=== PATIENT | female | born 1950 | race African-American/Black ===

== ENCOUNTER 2018-02-26 19:18 | Emergency (ER) | payer MEDICARE, MEDICAID ==
[~2018-02-26] VITALS: Ht 180.3 cm; Wt 93.0 kg
[2018-02-26 19:27] VITALS: BP 170/79
== END 2018-02-27 02:58 | disposition left against medical advice (07) ==
LOC: ER 19:18
DX: F41.9 Anxiety disorder, unspecified (principal); R51 Headache; E11.9 Type 2 diabetes mellitus without complications; I10 Essential (primary) hypertension; Z53.21 Procedure and treatment not carried out due to patient leaving prior to being seen by health care provider

== ENCOUNTER 2019-07-06 16:51 | Inpatient (IN) | payer MEDICAID, MEDICARE ==
[~2019-07-06] VITALS: Ht 165.1 cm; Wt 79.8 kg
[2019-07-06 12:05] VITALS: BP 118/58
[2019-07-06] MEDS ORDERED: NALOXONE HCL 0.4 MG/ML 1ML VIAL IV ONE (17:45)
[2019-07-06] MEDS ORDERED: SODIUM CHLORIDE 0.9% 1,000 ML IV ONE (17:45)
[2019-07-06] MEDS ORDERED: NALOXONE HCL 0.4 MG/ML 1ML VIAL ONE (17:51)
[2019-07-06] MEDS ORDERED: NALOXONE HCL 1 MG/ML 2ML VIAL IV ONE ×2 (18:00)
[2019-07-06 18:05] LABS: EOSINOPHILS % 2.6 % (0.0-5.0); HEMATOCRIT. 36.7 % (36.0-48.0); HEMOGLOBIN. 12.4 g/dL (12.0-16.0); LYMPHOCYTES % 34.6 % (20.0-50.0); MEAN CORPUSCULAR HEMOGLOBIN 32.5 pg (28.0-32.0); MEAN CORPUSCULAR VOLUME 95.7 fL (81.0-99.0); MEAN PLATELET VOLUME 7.6 fl (7.4-10.4); MONOCYTES % 6.7 % (2.0-8.0); NEUTROPHILS % 55.1 % (40.0-76.0); PLATELET 290 x1000/uL (130-400); RED BLOOD CELL COUNT 3.83 mill/uL (4.2-5.4); RED CELL DISTRIBUTION WIDTH 14.7 % (11.6-14.6)
[2019-07-06 18:11] LABS: CHLORIDE 110 mEq/L (98-107)
[2019-07-06 18:15] LABS: ETHANOL BLOOD < 10 mg/dL
[2019-07-06] MEDS ORDERED: PIPERACILLIN/TAZ 3.375G PREMIX 50 ML IV ONE (18:45)
[2019-07-06] MEDS ORDERED: LEVETIRACETAM 2,000 MG in SODIUM CHLORIDE 0.9% 250 ML IV SCH (18:45)
[2019-07-06] MEDS ORDERED: VANCOMYCIN 1 G PREMIX 200 ML IV ONE (18:45)
[2019-07-06 19:40] LABS: CLARITY URINE CLEAR (CLEAR); COLOR URINE YELLOW (YELLOW); KETONES URINE NEGATIVE (NEGATIVE); LEUKOCYTE ESTERASE URINE NEGATIVE (NEGATIVE); NITRITE URINE NEGATIVE (NEGATIVE); OCCULT BLOOD URINE NEGATIVE (NEGATIVE); PH URINE 6.5 (4.5-8.0); PROTEIN URINE NEGATIVE (NEGATIVE); SPECIFIC GRAVITY URINE 1.007 (1.005-1.030); UROBILINOGEN URINE 0.2 E.U./dL (0.2-1.0)
[2019-07-06 19:55] LABS: *AMPHETAMINES SCREEN URINE NEGATIVE (NEGATIVE); *BARBITURATES SCREEN URINE NEGATIVE (NEGATIVE); *BENZODIAZEPINES SCREEN URINE NEGATIVE (NEGATIVE); *COCAINE SCREEN URINE NEGATIVE (NEGATIVE)
[2019-07-06 19:56] LABS: CANNABINOID URINE SCREEN PRESUMTIVE POSITIVE (NEGATIVE); METHADONE URINE SCREEN NEGATIVE (NEGATIVE); OPIATES URINE SCREEN NEGATIVE (NEGATIVE); PHENCYCLIDINE URINE SCREEN NEGATIVE (NEGATIVE)
[2019-07-06 22:32] VITALS: BP 157/84
[2019-07-06] MEDS: LORAZEPAM 2MG/ML CPJ IV PRN (23:17)
[2019-07-06 23:30] VITALS: BP 157/84
[2019-07-07] VITALS (12 sets, daily range): BP systolic 109–163; BP diastolic 53–87
[2019-07-07] MEDS ORDERED: POTASSIUM CHLORIDE INJ 40 MEQ in DEXT 5% WATER 250 ML IV NR (01:00)
[2019-07-07] MEDS: LORAZEPAM 2MG/ML CPJ IV PRN ×2 (07:07→13:35)
[2019-07-07] MEDS: LEVETIRACETAM 500MG/5ML CUP PO SCH ×2 (09:08→20:57)
[2019-07-07] MEDS: HYDROCODONE/ACETAMINOPHEN 5/325MG TABLET PO PRN ×2 (10:49→16:20)
[2019-07-07] MEDS ORDERED: OXYCODONE HCL/ACETAMINOPHEN 5/325MG TABLET PO PRN (18:30)
[2019-07-07] MEDS: OXYCODONE HCL/ACETAMINOPHEN 5/325MG TABLET PO PRN (22:28)
[2019-07-08] VITALS (12 sets, daily range): BP systolic 126–157; BP diastolic 57–98
[2019-07-08] MEDS ORDERED: OXYCODONE HCL/ACETAMINOPHEN 5/325MG TABLET PO NR (01:00)
[2019-07-08] MEDS: LORAZEPAM 2MG/ML CPJ IV PRN (08:26)
[2019-07-08] MEDS: LEVETIRACETAM 500MG/5ML CUP PO SCH ×2 (10:06→21:15)
[2019-07-08] MEDS: LORAZEPAM 1MG TABLET PO PRN ×2 (16:41→23:15)
[2019-07-08 18:49] LABS: CHLORIDE 108 mEq/L (98-107)
[2019-07-09] VITALS (8 sets, daily range): BP systolic 122–148; BP diastolic 59–102
[2019-07-09] MEDS: LORAZEPAM 1MG TABLET PO PRN (07:53)
[2019-07-09] MEDS: LEVETIRACETAM 500MG/5ML CUP PO SCH (08:25)
[2019-07-09] MEDS: OXYCODONE HCL/ACETAMINOPHEN 5/325MG TABLET PO PRN (12:13)
[2019-07-09] MEDS ORDERED: KEPPSOL PO (12:49)
[2019-07-09] MEDS ORDERED: LEVE1000 MT (12:49)
== END 2019-07-09 15:25 | disposition home health service (06) | DRG 101 ==
LOC: ER 16:51 → EDBEDREQ 19:33 → EDBEDREQSVC 19:34 → CANRESERV 20:59 → ENRESERV 20:59 → EDBEDREQSVC 21:27 → ENRESERV 21:43 → 3WST 22:18
PROVIDERS: ADMIT Internal Medicine; ATTEND Internal Medicine
DX: G40.901 Epilepsy, unspecified, not intractable, with status epilepticus (principal); E87.1 Hypo-osmolality and hyponatremia; E87.8 Other disorders of electrolyte and fluid balance, not elsewhere classified; E87.6 Hypokalemia; E11.9 Type 2 diabetes mellitus without complications; F12.90 Cannabis use, unspecified, uncomplicated; F41.9 Anxiety disorder, unspecified; G89.29 Other chronic pain; I10 Essential (primary) hypertension
CPT/HCPCS: 36415; 70551; 71045; 80048; 80053; 80305; 80320; 81003; 83605; 83880; 84484; 85025; 87186; 93005; 97112; 97116; 97162; 99285; J1953; J2060; J2310; J2543; J3370; J3480; J7030; J7050; J7060; G0480

== ENCOUNTER 2021-02-14 17:18 | Emergency (ER) | payer MEDICARE ==
[~2021-02-14] VITALS: Ht 167.6 cm; Wt 82.0 kg
[~2021-02-14 17:18] MED LIST: KEPPSOL PO; LEVE1000 MT
[2021-02-14] MEDS ORDERED: ACETAMINOPHEN 325MG TABLET PO ONE (19:00)
[2021-02-14 20:47] VITALS: BP 130/86
== END 2021-02-14 20:52 | disposition home or self-care (01) ==
LOC: ER 17:18
DX: S00.03XA Contusion of scalp, initial encounter (principal); M54.2 Cervicalgia; M79.641 Pain in right hand; M25.562 Pain in left knee; M25.561 Pain in right knee; I10 Essential (primary) hypertension; E11.9 Type 2 diabetes mellitus without complications; G40.909 Epilepsy, unspecified, not intractable, without status epilepticus; W01.198A Fall on same level from slipping, tripping and stumbling with subsequent striking against other object, initial encounter; Y93.01 Activity, walking, marching and hiking; Y92.89 Other specified places as the place of occurrence of the external cause; Z79.899 Other long term (current) drug therapy
CPT/HCPCS: 73130; 73560; 99284

== ENCOUNTER 2022-09-08 14:04 | Inpatient (IN) | payer BC ==
[~2022-09-08] VITALS: Ht 167.6 cm; Wt 87.1 kg
[~2022-09-08 14:04] MED LIST changes: +AMLO-337 MT; +ASPI-1160 PO; +CLON0.1T PO; +CLOP75TA33 MT; +DULO30CA52 MT; +GABA-532 MT; -KEPPSOL PO; +LACO150T2 MT; +LORA2ORA5 PO; +OLAN5TAB74 MT; +PRAV40TA58 MT; +TRAM50TA3 MT
[2022-09-08] MEDS ORDERED: DIPHENHYDRAMINE 50MG/ML VIAL IM ONE (15:00)
[2022-09-08] MEDS ORDERED: SODIUM CHLORIDE 0.9% 1,000 ML IV ONE (15:00)
[2022-09-08] MEDS ORDERED: LORAZEPAM 2MG/ML CPJ IM ONE (15:00)
[2022-09-08] MEDS ORDERED: OLANZAPINE 10 MG/VIAL IM ONE (15:00)
[2022-09-08 15:34] LABS: BASOPHILS % 0.9 % (0.0-2.0); EOSINOPHILS % 0.4 % (0.0-5.0); HEMATOCRIT. 35.7 % (36.0-48.0); HEMOGLOBIN. 11.6 g/dL (12.0-16.0); LYMPHOCYTES % 23.2 % (20.0-50.0); MEAN CORPUSCULAR HEMOGLOBIN 31.2 pg (28.0-32.0); MEAN CORPUSCULAR VOLUME 95.8 fL (81.0-99.0); MEAN PLATELET VOLUME 7.9 fl (7.4-10.4); MONOCYTES % 8.6 % (2.0-8.0); NEUTROPHILS % 66.9 % (40.0-76.0); PLATELET 297 x1000/uL (130-400); RED BLOOD CELL COUNT 3.73 mill/uL (4.2-5.4); RED CELL DISTRIBUTION WIDTH 14.9 % (11.6-14.6)
[2022-09-08 15:51] LABS: CHLORIDE 111 mEq/L (98-107)
[2022-09-08 16:08] LABS: ETHANOL BLOOD < 10 mg/dL (-10)
[2022-09-08 16:50] LABS: CLARITY URINE CLEAR (CLEAR); COLOR URINE YELLOW (YELLOW); KETONES URINE TRACE (NEGATIVE); LEUKOCYTE ESTERASE URINE NEGATIVE (NEGATIVE); NITRITE URINE NEGATIVE (NEGATIVE); OCCULT BLOOD URINE NEGATIVE (NEGATIVE); PH URINE 5.5 (4.5-8.0); PROTEIN URINE TRACE (NEGATIVE); UROBILINOGEN URINE 0.2 E.U./dL (0.2-1.0)
[2022-09-08 17:02] LABS: *AMPHETAMINES SCREEN URINE NEGATIVE (NEGATIVE); *BARBITURATES SCREEN URINE NEGATIVE (NEGATIVE); *BENZODIAZEPINES SCREEN URINE NEGATIVE (NEGATIVE); *COCAINE SCREEN URINE NEGATIVE (NEGATIVE); CANNABINOID URINE SCREEN PRESUMTIVE POSITIVE (NEGATIVE); METHADONE URINE SCREEN NEGATIVE (NEGATIVE); OPIATES URINE SCREEN NEGATIVE (NEGATIVE); PHENCYCLIDINE URINE SCREEN NEGATIVE (NEGATIVE)
[2022-09-08 21:40] VITALS: BP 129/50; PULSE 68; RESP 16; TEMP 98.2
[2022-09-09] MEDS ORDERED: CLONIDINE 0.1MG TABLET PO PRN (04:30)
[2022-09-09] MEDS: GABAPENTIN 300MG CAPSULE PO SCH ×3 (06:33→21:09)
[2022-09-09] MEDS: LORAZEPAM 1MG TABLET PO PRN ×2 (06:34→19:25)
[2022-09-09] MEDS ORDERED: *PATIENT'S OWN MEDICATION STORAGE XX SCH (08:00)
[2022-09-09] MEDS: ACETAMINOPHEN 325MG TABLET PO PRN (09:11)
[2022-09-09] MEDS: AMLODIPINE 10MG TABLET PO SCH (09:12)
[2022-09-09] MEDS: ATENOLOL 25MG TABLET PO SCH (09:12)
[2022-09-09] MEDS: LEVETIRACETAM 500MG TABLET PO SCH ×2 (09:13→21:09)
[2022-09-09] MEDS: DULOXETINE HCL 30MG DR CAPSULE PO SCH (09:13)
[2022-09-09] MEDS: ASPIRIN 81MG TABLET PO SCH (09:13)
[2022-09-09] MEDS: LOSARTAN POTASSIUM 50 MG TABLET PO SCH (09:15)
[2022-09-09 09:40] LABS: BASOPHILS % 0.9 % (0.0-2.0); EOSINOPHILS % 0.9 % (0.0-5.0); HEMOGLOBIN. 11.7 g/dL (12.0-16.0); LYMPHOCYTES % 29.3 % (20.0-50.0); MEAN CORPUSCULAR HEMOGLOBIN 31.8 pg (28.0-32.0); MEAN CORPUSCULAR VOLUME 95.2 fL (81.0-99.0); MEAN PLATELET VOLUME 7.9 fl (7.4-10.4); NEUTROPHILS % 61.9 % (40.0-76.0); PLATELET 274 x1000/uL (130-400); RED BLOOD CELL COUNT 3.67 mill/uL (4.2-5.4); RED CELL DISTRIBUTION WIDTH 14.8 % (11.6-14.6)
[2022-09-09 09:56] LABS: CHLORIDE 112 mEq/L (98-107)
[2022-09-09] MEDS ORDERED: LACTULOSE 20G/30ML UDC PO NR (11:15)
[2022-09-09 12:06] VITALS: BP 126/80; PULSE 60; RESP 20; TEMP 98.4
[2022-09-09 16:08] VITALS: BP 102/42; PULSE 66; RESP 20; TEMP 97.8
[2022-09-09 20:00] VITALS: BP 129/72; PULSE 60; RESP 18; TEMP 98.2
[2022-09-09] MEDS ORDERED: OLANZAPINE 5MG TABLET PO SCH (21:00)
[2022-09-09] MEDS ORDERED: ATORVASTATIN CALCIUM 40MG TABLET PO SCH (21:00)
[2022-09-10] VITALS: BP 106/58; PULSE 58; RESP 16; TEMP 98.9
[2022-09-10 04:00] VITALS: BP 143/54; PULSE 54; RESP 18; TEMP 96.6
[2022-09-10] MEDS: ACETAMINOPHEN 325MG TABLET PO PRN ×2 (04:17→14:45)
[2022-09-10] MEDS: GABAPENTIN 300MG CAPSULE PO SCH ×2 (05:25→13:39)
[2022-09-10 05:55] LABS: CREATINE KINASE 155 IU/L (26-192); CREATINE KINASE MB FRACTION < 1.0 ng/mL (0.5-3.6)
[2022-09-10 08:00] VITALS: BP 150/72; PULSE 63; PULSE 73; RESP 18; TEMP 97.6
[2022-09-10] MEDS ORDERED: CLOPIDOGREL 75MG TABLET PO SCH (09:00)
[2022-09-10] MEDS ORDERED: OLANZAPINE 5MG TABLET ODT PO SCH (09:00)
[2022-09-10] MEDS: ATENOLOL 25MG TABLET PO SCH (09:23)
[2022-09-10] MEDS: DULOXETINE HCL 30MG DR CAPSULE PO SCH (09:23)
[2022-09-10] MEDS: LEVETIRACETAM 500MG TABLET PO SCH (09:23)
[2022-09-10] MEDS: AMLODIPINE 10MG TABLET PO SCH (09:23)
[2022-09-10] MEDS: LORAZEPAM 1MG TABLET PO PRN (09:23)
[2022-09-10] MEDS: ASPIRIN 81MG TABLET PO SCH (09:24)
[2022-09-10] MEDS: LOSARTAN POTASSIUM 50 MG TABLET PO SCH (09:24)
[2022-09-10 11:59] VITALS: BP 133/54; PULSE 56; RESP 18; TEMP 98.1
[2022-09-10 14:55] VITALS: BP 133/61; PULSE 61; TEMP 98.1; O2SAT 99
[2022-09-10 16:00] VITALS: BP 137/56; PULSE 61; RESP 18; TEMP 98
== END 2022-09-10 16:43 | disposition home or self-care (01) | DRG 206 ==
LOC: ER 14:04 → EDBEDREQTM 19:38 → EDBEDREQ 19:38 → ENRESERV 21:31 → CMPBEDREQ 09-09 00:39 → 8WST 09-09 02:17
PROVIDERS: ADMIT Internal Medicine; ATTEND Internal Medicine
DX: M94.0 Chondrocostal junction syndrome [Tietze] (principal); E11.9 Type 2 diabetes mellitus without complications; G40.909 Epilepsy, unspecified, not intractable, without status epilepticus; F41.0 Panic disorder [episodic paroxysmal anxiety]; E66.9 Obesity, unspecified; F41.1 Generalized anxiety disorder; F12.20 Cannabis dependence, uncomplicated; I10 Essential (primary) hypertension; F31.9 Bipolar disorder, unspecified; Z86.73 Personal history of transient ischemic attack (TIA), and cerebral infarction without residual deficits; Z79.4 Long term (current) use of insulin; Z68.31 Body mass index [BMI] 31.0-31.9, adult
CPT/HCPCS: 36415; 71045; 80048; 80053; 80061; 80305; 80307; 80320; 80329; 81003; 82140; 82550; 82553; 82962; 83036; 84443; 84484; 85025; 93005; 99285; J1200; J2060; J3490; G0480

== ENCOUNTER 2022-09-20 17:47 | Emergency (ER) | payer BC ==
[~2022-09-20] VITALS: Ht 167.6 cm; Wt 80.0 kg
[2022-09-20 18:01] VITALS: BP 148/90; PULSE 98; RESP 16; TEMP 98.4; O2SAT 99
[2022-09-20] MEDS ORDERED: HALOPERIDOL LACTATE 5MG/ML VIAL IM STA (18:21)
[2022-09-20] MEDS ORDERED: LORAZEPAM 2MG/ML CPJ IM ONE (18:30)
[2022-09-20 20:21] LABS: CHLORIDE 113 mEq/L (98-107)
[2022-09-20 20:23] LABS: BASOPHILS % 0.3 % (0.0-2.0); EOSINOPHILS % 0.7 % (0.0-5.0); HEMATOCRIT. 34.7 % (36.0-48.0); HEMOGLOBIN. 11.4 g/dL (12.0-16.0); LYMPHOCYTES % 21.1 % (20.0-50.0); MEAN CORPUSCULAR HEMOGLOBIN 31.5 pg (28.0-32.0); MEAN CORPUSCULAR VOLUME 95.5 fL (81.0-99.0); MEAN PLATELET VOLUME 7.9 fl (7.4-10.4); MONOCYTES % 7.5 % (2.0-8.0); NEUTROPHILS % 70.4 % (40.0-76.0); PLATELET 316 x1000/uL (130-400); RED BLOOD CELL COUNT 3.64 mill/uL (4.2-5.4); RED CELL DISTRIBUTION WIDTH 14.8 % (11.6-14.6)
[2022-09-20 20:28] LABS: ETHANOL BLOOD < 10 mg/dL (-10)
[2022-09-20 21:04] LABS: CLARITY URINE CLEAR (CLEAR); COLOR URINE YELLOW (YELLOW); KETONES URINE NEGATIVE (NEGATIVE); LEUKOCYTE ESTERASE URINE NEGATIVE (NEGATIVE); NITRITE URINE NEGATIVE (NEGATIVE); OCCULT BLOOD URINE NEGATIVE (NEGATIVE); PH URINE 5.5 (4.5-8.0); PROTEIN URINE 1+ (NEGATIVE); SPECIFIC GRAVITY URINE 1.021 (1.005-1.030); UROBILINOGEN URINE 0.2 E.U./dL (0.2-1.0)
[2022-09-20 21:30] LABS: *AMPHETAMINES SCREEN URINE NEGATIVE (NEGATIVE); *BARBITURATES SCREEN URINE NEGATIVE (NEGATIVE); *BENZODIAZEPINES SCREEN URINE PRESUMTIVE POSITIVE (NEGATIVE); *COCAINE SCREEN URINE NEGATIVE (NEGATIVE); CANNABINOID URINE SCREEN PRESUMTIVE POSITIVE (NEGATIVE); METHADONE URINE SCREEN NEGATIVE (NEGATIVE); OPIATES URINE SCREEN NEGATIVE (NEGATIVE); PHENCYCLIDINE URINE SCREEN NEGATIVE (NEGATIVE)
[2022-09-20] MEDS ORDERED: NITR-87 MT (21:50)
== END 2022-09-21 00:08 | disposition home or self-care (01) ==
LOC: ER 17:47
DX: R45.6 Violent behavior (principal); E11.9 Type 2 diabetes mellitus without complications; I10 Essential (primary) hypertension; Z86.73 Personal history of transient ischemic attack (TIA), and cerebral infarction without residual deficits
CPT/HCPCS: 80053; 80305; 81003; 80307; 80329; 80320; 85025; 36415; 96372; 99284; J1630; J2060; G0480